=== PATIENT | female | born 1950 ===

== ENCOUNTER → 2022-12-28 | Outpatient (CLI) | payer MEDICARE ==
[~2022-12-28] VITALS: Ht 152.4 cm; Wt 78.6 kg
[~2022-12-28] MED LIST: AMLO-257 PO; ASPI-1444 PO; ATOR20TA86 PO; CARV6 PO; LOSA-382 PO; METF-1211 PO; SPIR-37 PO; TICA90TA PO
[2022-12-28 10:45] VITALS: BP 139/64
== END | disposition home or self-care (01) ==
LOC: SRCNTR 10:22
PROVIDERS: ATTEND Internal Medicine
DX: I10 Essential (primary) hypertension (principal); E11.9 Type 2 diabetes mellitus without complications; I25.10 Atherosclerotic heart disease of native coronary artery without angina pectoris; E66.9 Obesity, unspecified; Z87.891 Personal history of nicotine dependence
CPT/HCPCS: G0463; Z7500